=== PATIENT | male | born 1950 | race Caucasian/White ===

== ENCOUNTER → 2022-01-04 14:24 | Outpatient (CLI) | payer MEDICARE, SELFPAY ==
--- NOTE | 2022-01-04 14:26 | DI.RAD.S_ITS ---
PROCEDURE: XR FOOT RT MIN 3V INDICATIONS: Foot pain TECHNIQUE: 3 views of the foot were acquired. COMPARISON: None. FINDINGS: Bones: No fractures or dislocations. No suspicious bony lesions. Hallux valgus deformity. Medial bunion. Mild interphalangeal joint osteoarthritis. Soft tissues: No tibiotalar joint effusion. Achilles tendon appears normal. IMPRESSION: 1. Medial bunion. 2. Hallux valgus deformity. Dictated by: Arabella Zhong MD, PhD on 01/04/2022 at 16:12 Approved by: Arabella Zhong MD, PhD on 01/04/2022 at 16:13
== END ==
PROVIDERS: Family Provider Family Medicine; PCP Registered Nurse; Referring Provider Nurse Practitioner Family; Visit Provider Nurse Practitioner Family
DX: M20.11 Hallux valgus (acquired), right foot (principal); M21.611 Bunion of right foot; M79.671 Pain in right foot
CPT/HCPCS: 73630